=== PATIENT | female | born 1965 | race Two or more races ===

== ENCOUNTER 2020-03-24 08:40 | Emergency (ER) | payer MEDICAID, OTHER ==
[~2020-03-24] VITALS: Ht 167.6 cm; Wt 54.4 kg
[2020-03-24 09:47] VITALS: BP 133/90
== END 2020-03-24 10:26 | disposition home or self-care (01) ==
LOC: ER 08:40
DX: J20.9 Acute bronchitis, unspecified (principal); J02.9 Acute pharyngitis, unspecified
CPT/HCPCS: 71046

== ENCOUNTER 2021-08-16 11:50 | Emergency (ER) | payer MEDICAID ==
[~2021-08-16] VITALS: Ht 167.6 cm; Wt 58.5 kg
[2021-08-16] MEDS ORDERED: ASPirin 81 mg TAB PO ONE (12:30)
[2021-08-16 13:21] LABS: Basophils # (auto) 0 10 ^3/uL (0-0.2); Basophils % (auto) 0.4 % (0.0-2.0); Eosinophils # (auto) 0.1 10 ^3/uL (0-0.8); Eosinophils % (auto) 2.2 % (0.0-7.0); Hematocrit 42.1 % (36.0-46.0); Hemoglobin 14.1 g/dL (12.2-16.2); Lymphocytes # (auto) 1.7 10 ^3/uL (0.4-5.4); Lymphocytes % (auto) 26.9 % (10.0-50.0); Mean Corpuscular Hemoglobin 30.3 pg (28.0-32.0); Mean Corpuscular Hgb Conc. 33.4 g/dL (32.0-36.0); Mean Corpuscular Volume 90.9 fL (80.0-100.0); Monocytes # (auto) 0.4 10 ^3/uL (0-1.3); Monocytes % (auto) 6.1 % (0.0-12.0); Neutrophils % (auto) 64.4 % (37.0-80.0); Red Blood Cells 4.63 10^6/uL (4.0-5.20); White Blood Cell 6.2 10^3/uL (4.4-10.8)
[2021-08-16 13:30] LABS: Albumin 3.7 g/dL (3.4-5.0); Calcium 8.9 mg/dL (8.5-10.1); Potassium 4.2 mmol/L (3.5-5.1)
[2021-08-16 13:43] LABS: BUN/Creatinine Ratio 17.9; Bilirubin, Total 0.4 mg/dL (0.2-1.0); Total Protein 7.5 g/dL (6.4-8.2)
[2021-08-16 17:40] VITALS: BP 124/78
== END 2021-08-16 15:24 | disposition home or self-care (01) ==
LOC: ER 11:50
DX: R07.89 Other chest pain (principal); E78.5 Hyperlipidemia, unspecified; Z91.010 Allergy to peanuts
CPT/HCPCS: 36415; 71046; 80053; 83735; 84484; 85025; 93005

== ENCOUNTER 2024-12-02 10:21 | Emergency (ER) | payer MEDICAID ==
[~2024-12-02] VITALS: Ht 165.1 cm; Wt 60.9 kg
--- NOTE | 2024-12-02 11:19 | DVH ---
CLINICAL INFORMATION: 59 years old, Female; concern about glass, foreign body to finger. TECHNIQUE: 3 views of the right hand were obtained. COMPARISON: None FINDINGS: No acute fracture or dislocation. No significant arthropathy. Soft tissue swelling in the 2 nd digit of the right hand. No radiopaque foreign body visualized. IMPRESSION: 1. No evidence of acute bony abnormality. 2. No radiopaque foreign body visualized.
[2024-12-02 11:52] VITALS: BP 145/87; PULSE 83; RESP 18; TEMP 98.3; O2SAT 95
--- NOTE | 2024-12-02 12:05 | ED.PDOC ---
Musculoskeletal HPI Comments 59 year old female presents for concern about possible fb to right index finger located between the pip and dip Reports she was cleaning her back yard without gloves and concern about glass C/o TTP Denies f/c/n/v/d discharge Chief Complaint: Upper Extremity Time Seen by MD: 10:53 Primary Care Provider: [facility] Reviewed Notes: Nurses Notes, Medications, Allergies Allergies: Coded Allergies: Peanut-containing Drug Products (Verified Allergy, Severe, 03/24/20) Bowden Oil (Verified Allergy, Unknown, 12/02/24) Information Source: Patient Mode of Arrival: Ambulatory Past Medical History 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 Hx Family History Family History: Unknown Social History Smoker: Non-Smoker Alcohol: Denies ETOH Use Drugs: Denies Drug Use Lives In: Home All Other Systems: Reviewed and Negative (Per HPI) Physical Exam General Appearance: No Apparent Distress, Normal HEENT: Normal ENT Inspection, Pharynx Normal, TMs Normal Neck: Full Range of Motion, Non-Tender, Normal, Normal Inspection Respiratory: Chest Non-Tender, Lungs Clear, No Accessory Muscle Use, No Respiratory Distress, Normal Breath Sounds Cardiovascular: No Murmur, No Gallop, Regular Rate/Rhythm Breast Exam: Deferred Gastrointestinal: No Organomegaly, Non Tender, No Pulsatile Mass, Normal Bowel Sounds, Soft Genitalia: Deferred Pelvic: Deferred Rectal: Deferred Extremities: No calf tenderness, Normal capillary refill, Normal inspection, Normal range of motion, Non-tender, No pedal edema Musculoskeletal : Apperance: Normal Neurologic: Alert, sales forecast analyst II-XII nml as Tested, No Motor Deficits, Normal Affect, Normal Mood, No Sensory Deficits Cerebellar Function: Normal Reflexes: Normal Skin: Dry, Normal Color, Warm Lymphatic: No Adenopathy Was a procedure done? Was a procedure done?: No Differential Diagnosis EXT Differential Diagnosis: Fracture, Sprain, Other X-Ray, Labs, Meds, VS Vital Signs Date Time Temp Pulse Resp B/P (MAP) Pulse Ox O2 Delivery O2 Flow Rate FiO2 12/02/24 11:52 83 18 95 Room Air 12/02/24 11:52 98.3 83 18 145/87 (106) 95 98.3 12/02/24 10:41 98.3 83 18 145/87 (106) 95 PATIENT: YAMILEX SAMPSONIRIS: [id number]: [id number] : 1965 LOC: ER ROOM / BED: / AGE / SEX: 59 / F ADM STATUS: REG ER SERVICE 1053 ORDERING PHYSICIAN: SAM STARKEY NP PROCEDURE(s): RHAN - R HAND 3 VIEW XRAY REASON: concern about glass, foreign body to finger ORDER NUMBER(s): [id number], ACCESSION NUMBER(s): [id number] CLINICAL INFORMATION: 59 years old, Female; concern about glass, foreign body to finger. TECHNIQUE: 3 views of the right hand were obtained. COMPARISON: None FINDINGS: No acute fracture or dislocation. No significant arthropathy. Soft tissue swelling in the 2nd digit of the right hand. No radiopaque foreign body visualized. IMPRESSION: 1. No evidence of acute bony abnormality. 2. No radiopaque foreign body visualized. ATED BY: ABUNDIO BUSTILLO DO DICTATED DATE/TIME: 12/02/24 1116 SIGNED BY: ABUNDIO BUSTILLO DO SIGNED DATE/TIME: 12/02/24 1116 X-Ray, Labs, Meds, VS Comment No foreign body visualized on head x-ray. X-ray report was provided to the patient advised to follow up with PCP Patient is stable for discharge at this time. External notes reviewed. Test results and diagnostic imaging interpreted. All diagnostic findings, discharge care, education and instructions provided Follow-up with PCP in 2 to 3 days Patient verbalized understanding and agreed to treatment plan Vital signs stable, afebrile, no acute distress noted Patient ambulatory with strong steady gait Advised to return precautions for any new or worsening symptoms, return to ER immediately for re-evaluation Patient is aware that the purpose of this visit was for an acute medical emergency requiring emergent stabilization. Chronic conditions, including malignancies have not been ruled out. Patient is instructed to follow up with PCP as directed and discharge instructions for continued care and workup. If unable to arrange follow-up, patient is to return to the emergency department for reassessment. Patient (parent or legal guardian if applicable) was given verbal and written discharge instructions and acknowledges understanding. Time of 1ST Reevaluation: 12:00 Reevaluation 1ST: Improved Patient Education/Counseling: Diagnosis, Treatment Family Education/Counseling: Diagnosis, Treatment Departure 1 Departure Time of Disposition: 12:03 Impression: Primary Impression: Hand pain, right Disposition: 01 HOME / SELF CARE / HOMELESS Condition: Stable Critical Care Note Critical Care Time?: No Stability Stability form required: No Heart Score Heart Score: Heart Score Response (Comments) Value History N/A 0 EKG N/A 0 Age N/A 0 Risk Factors N/A 0 Troponin N/A 0 Total 0 SAM STARKEY NP Dec 02, 2024 12:05
== END 2024-12-02 12:13 | disposition home or self-care (01) ==
LOC: ER 10:21
DX: M79.641 Pain in right hand (principal); E78.5 Hyperlipidemia, unspecified; Z91.010 Allergy to peanuts; Z91.018 Allergy to other foods
CPT/HCPCS: 73130